=== PATIENT | male | born 1970 | race Caucasian/White ===

== ENCOUNTER 2016-11-16 15:32 | Emergency (ER) | payer SELFPAY ==
[2016-11-16] MEDS ORDERED: IPRATROPIUM/ALBUTEROL 3 ML DEYVIAL IH ONE (15:50)
--- NOTE | 2016-11-16 15:53 | UCPHY ---
H & P Patient Type: New Time Seen by Provider: 11/16/16 15:52 HPI/ROS: CHIEF COMPLAINT: Shortness of breath HISTORY OF PRESENT ILLNESS: The patient is a 46 year old male presenting with shortness of breath for the past 7 days. The patient reports difficulty catching his breath. He works in [employer] and noticed he's been wheezing more than usual while at work. He has an associated cough that is nonproductive. The patient has experienced similar bouts of dyspnea in the past, but his symptoms usually resolve after 3-4 days. He has used Primatene (over the counter) for these symptoms. Today, while walking up the stairs, the patient felt very lightheaded. The patient also mentions that he has been waking up due to shortness of breath. He denies lower extremity pain or swelling. He feels palpitations, but denies any associated chest pain. No recent fever. REVIEW OF SYSTEMS: A ten point review of systems was performed and is negative with the exception of the items mentioned in the HPI. Source: Patient - Medical/Surgical History Hx Asthma: No Hx Chronic Respiratory Disease: No Hx Diabetes: No Hx Cardiac Disease: No Hx Renal Disease: No Hx Cirrhosis: No Hx Alcoholism: No Hx HIV/AIDS: No Hx Splenectomy or Spleen Trauma: No Other PMH: Denies. - Family History Significant Family History: No pertinent family hx - Social History Smoking Status: Never smoked Drug Use: None Additional Social History: Works in [employer]. - Physical Exam Exam: General Appearance: Alert. Vital signs reviewed. BP 151/98. O2 95% RA. Eyes: Pupils equal and round, no conjunctival injection, no discharge. Anicteric. ENT, Mouth: Mucous membranes are moist, no oropharyngeal erythema or edema. Uvula is midline. Neck: No lymphadenopathy, supple. Trachea midline. Respiratory: Lungs with distant breath sounds, poor air exchange. No wheezing. Cardiovascular: Mildly tachycardic; no murmur, rub, or gallop. Gastrointestinal: Abdomen is soft and nontender, no masses or organomegaly, bowel sounds normal. Skin: Warm and dry, no rashes on exposed skin, normal color. Back: Nontender to palpation over the thoracolumbar spine. No CVAT. Extremities: No lower extremity edema, no calf tenderness or swelling. Neurological: Alert and oriented. Moving all four extremities easily and equally. Psychiatric: Normal affect. Constitutional: Initial Vital Signs Temperature (C) 36.4 C 11/16/16 15:54 Heart Rate 93 11/16/16 15:54 Respiratory Rate 20 11/16/16 15:54 Blood Pressure 151/98 H 11/16/16 15:54 O2 Sat (%) 95 11/16/16 15:54 O2 Delivery Mode Room Air Allergies/Adverse Reactions: No Known Allergies Allergy (Unverified 11/16/16 15:52) Home Medications: Medication Instructions Recorded Albuterol [Proventil Inhaler HFA 1 - 2 puffs IH Q4 #1 mdi 11/16/16 (*)] predniSONE 20 mg PO BID #8 tablet 11/16/16 Medical Decision Making ED Course/Re-evaluation: The patient received a DuoNeb breathing treatment. This helped his symptoms a little. I ordered an additional Albuterol Neb and 60mg Prednisone. I offered a chest x-ray, but the patient declines at this time. 4:45 p.m.: I reassessed the patient, repeat respiratory exam the patient has better air exchange, no wheezing. He tells me he is able to take a deep breath now. I will continue to monitor the patient. 5:15 p.m.: Vital signs repeated. Room air pulse ox is 94%. He was hypertensive on arrival and his blood pressure has improved to 129/84. He is not tachypneic or tachycardic. He continues to feel better. No signs of infection such as fever. No ronchi or rales and I do not suspect pneumonia. Pneumothorax unlikely. He understands that a CXR, which he declines , would help to rule out these possibilities. He is comfortable returning home. I am prescribing albuterol MDI and prednisone. He is referred to PCP. Danger signs reviewed with him. Differential Diagnosis: Shortness of breath including but not limited to pulmonary infectious process, bronchitis, COPD, asthma, pulmonary embolus and congestive heart failure. - Data Points Medications Given: Discontinued Medications Albuterol (Proventil Neb) 3 ml IH EDNOW ONE Stop: 11/16/16 16:06 Last Admin: 11/16/16 16:17 Dose: 3 ml Albuterol/Ipratropium (Duoneb) 3 ml IH EDNOW ONE Stop: 11/16/16 15:51 Last Admin: 11/16/16 15:45 Dose: 3 ml Prednisone (Prednisone) 60 mg PO EDNOW ONE Stop: 11/16/16 16:06 Last Admin: 11/16/16 16:18 Dose: 60 mg Departure - Departure Disposition: Home, Routine, Self-Care Clinical Impression: Wheezy bronchitis Condition: Good Instructions: Acute Bronchitis (ED) Additional Instructions: You have been referred to a primary care physician. Please call Dr. Enriquez to arrange a followup appointment. Use Albuterol inhaler as directed for shortness of breath, cough, or wheezing. Take 4 day course of Prednisone as directed. Referrals: Christen Enriquez MD [Medical Doctor] - As per Instructions Prescriptions: Albuterol [Proventil Inhaler HFA (*)] 1 - 2 puffs IH Q4 #1 mdi predniSONE 20 mg PO BID #8 tablet - PQRS PQRS Measurement: Does not apply. Report Scribed for: Lauren Olivares Report Scribed by: Anabell Lopez Date of Report: 11/16/16 Time of Report: 16:05 Physician Review and Approval Statement: 11/16/16 15:52 Portions of this note were transcribed by the director medical economics. I, Dr. Lauren Olivares, personally performed the history, physical exam, and medical decision- making; and confirmed the accuracy of the information in the transcribed note.
[2016-11-16] MEDS ORDERED: ALBUTEROL 3 ML DEYVIAL IH ONE (16:05)
[2016-11-16] MEDS ORDERED: predniSONE 20 MG TAB PO ONE (16:05)
[2016-11-16 17:21] VITALS: TEMP 97.7
[2016-11-16 18:00] VITALS: BP 128/86; PULSE 86; RESP 16; O2SAT 95
== END 2016-11-16 17:58 | disposition home or self-care (01) ==
LOC: CED 15:32
DX: R06.2 Wheezing (principal); J40 Bronchitis, not specified as acute or chronic
CPT/HCPCS: G0463-PO

== ENCOUNTER 2016-12-07 10:39 | Emergency (ER) | payer SELFPAY ==
[2016-12-07] MEDS ORDERED: IPRATROPIUM/ALBUTEROL 3 ML DEYVIAL IH ONE (11:46)
--- NOTE | 2016-12-07 11:49 | UCPHY ---
H & P Patient Type: Established Chief Complaint Nursing Narrative: C/o SOB intermittently x 30 days. Seen at [facility] [place] on [place]16 and got better with steriods prescribed but felt worse over past week. Time Seen by Provider: 12/07/16 11:18 HPI/ROS: 46-year-old male seen here 3 weeks ago for bronchitis re-presents today complaining of shortness of breath. He denies fevers or chills he states he has had some cough but his primary symptom is that he is unable to take a deep breath. He denies leg swelling calf pain leg injury. Review of systems General no fever no chills no weakness HEENT no eye pain no eye discharge. No eye redness, no sore throat Respiratory positive cough positive shortness of breath Cardiac no chest pain, no peripheral edema GI no abdominal pain, no diarrhea, no constipation, no nausea, no vomiting no flank pain, no hematuria, no dysuria Musculoskeletal no myalgias, no joint pain Heme no easy bruising, no easy bleeding Endo no polyuria, no polydipsia Skin no rashes, no pruritus Neuro no syncope, no dizziness, no headaches Psych is no suicidal ideation, no homicidal ideation Source: Patient - Personal History Current Tetanus/Diphtheria Vaccine: Unsure Current Tetanus Diphtheria and Acellular Pertussis (TDAP): Unsure - Medical/Surgical History Hx Asthma: No Hx Chronic Respiratory Disease: No Hx Diabetes: No Hx Cardiac Disease: No Hx Renal Disease: No Hx Cirrhosis: No Hx Alcoholism: No Hx HIV/AIDS: No Hx Splenectomy or Spleen Trauma: No Other PMH: Denies. - Family History Significant Family History: No pertinent family hx - Social History Smoking Status: Never smoked Alcohol Use: Occasionally Drug Use: None - Physical Exam Exam: 46-year-old male alert and oriented in moderate distress secondary to difficulty taking a deep breath in HEENT atraumatic normocephalic, extraocular muscles intact, anicteric Oropharynx negative for erythema negative exudate, tolerating her own secretions Neck supple no meningismus Lungs diffuse wheeze Heart regular rate and rhythm without murmur rub or gallop Abdomen nondistended normoactive bowel sounds soft nontender Back no CVA tenderness, no step-offs, no spinal tenderness Extremities no cyanosis clubbing or edema No calf tenderness, negative Homans Neuro alert and oriented, no focal deficits Skin no rash Constitutional: Initial Vital Signs Temperature (C) 37.2 C 12/07/16 10:54 Heart Rate 113 H 12/07/16 10:54 Respiratory Rate 18 12/07/16 10:54 Blood Pressure 124/97 H 12/07/16 10:54 O2 Sat (%) 95 12/07/16 10:54 O2 Delivery Mode Room Air Allergies/Adverse Reactions: No Known Allergies Allergy (Verified 12/07/16 10:54) Home Medications: Medication Instructions Recorded Albuterol 12/07/16 Albuterol [Ventolin Hfa Inhaler] 2 puffs IH Q4 PRN #1 mdi 12/07/16 Fluticasone Hfa 220 Mcg [Flovent 1 puffs IH BID #1 mdi 12/07/16 220 MCG Hfa MDI (*)] methylPREDNISolone [Medrol Dose 1 each PO AD #1 ea 12/07/16 Shiv] Medical Decision Making - Diagnostics Imaging: Chest x-ray consistent with reactive airway disease hyperinflation no pneumonia no effusion ED Course/Re-evaluation: Patient seen and evaluated for cough, shortness of breath, wheezing Chest x-ray, significant for airway disease Physical exam diffuse wheeze Patient DuoNeb followed by an albuterol neb of 5 mg Patient given prednisone 60 mg Differential diagnosis considered Reactive airway disease/asthma, pneumonia, pulmonary embolus Impression Some reactive airway disease Plan Home with albuterol inhaler, Flovent inhaler, Medrol Dosepak Advised to follow up with a primary care physician as referred on his prior visit Advised to return as needed Recommended further workup in emergency department including laboratories and had offered patient fluids and magnesium he currently is pink out of pocket and was adamant that he wanted the bare minimum of workup. - Data Points Medications Given: Discontinued Medications Albuterol (Proventil Neb) 6 ml IH CONT ONE Stop: 12/07/16 13:45 Last Admin: 12/07/16 13:48 Dose: 6 ml Albuterol/Ipratropium (Duoneb) 3 ml IH EDNOW ONE Stop: 12/07/16 11:47 Last Admin: 12/07/16 11:49 Dose: 3 ml Sodium Chloride (Ns) 1,000 mls @ 0 mls/hr IV ONCE ONE PRN Reason: Wide Open Stop: 12/07/16 11:53 Last Admin: 12/07/16 12:32 Dose: Not Given Magnesium Sulfate/Dextrose (Magnesium Sulf 1 Gm (Premix)) 100 mls @ 100 mls/hr IV EDNOW ONE Stop: 12/07/16 12:52 Last Admin: 12/07/16 12:31 Dose: Not Given Lactated Ringer's (Lr) 1,000 mls @ 500 mls/hr IV EDNOW ONE Stop: 12/07/16 14:05 Last Admin: 12/07/16 12:31 Dose: Not Given Methylprednisolone Sodium Succinate (Solu-Medrol) 125 mg IVP EDNOW ONE Stop: 12/07/16 11:53 Last Admin: 12/07/16 12:31 Dose: Not Given Prednisone (Prednisone) 60 mg PO EDNOW ONE Stop: 12/07/16 12:23 Last Admin: 12/07/16 12:30 Dose: 60 mg Departure - Departure Disposition: Home, Routine, Self-Care Clinical Impression: Reactive airway disease with acute exacerbation Condition: Good Instructions: Reactive Airways Disease (ED) Referrals: NONE *PRIMARY CARE P,. [Primary Care Provider] - As per Instructions Prescriptions: Albuterol [Ventolin Hfa Inhaler] 2 puffs IH Q4 PRN #1 mdi PRN Reason: Cough, Moderate Fluticasone Hfa 220 Mcg [Flovent 220 MCG Hfa MDI (*)] 1 puffs IH BID #1 mdi methylPREDNISolone [Medrol Dose Shiv] 1 each PO AD #1 ea - PQRS PQRS Measurement: na
[2016-12-07] MEDS ORDERED: methylPREDNISolone SOD SUCC 125 MG/2 ML VIAL IVP ONE (11:52)
[2016-12-07] MEDS ORDERED: NS 1,000 ML IV ONE (11:52)
[2016-12-07] MEDS ORDERED: MAGNESIUM SULF 1 GM/DEXTROSE 100 ML IV ONE (11:53)
[2016-12-07] MEDS ORDERED: LR 1,000 ML IV ONE (12:06)
[2016-12-07] MEDS ORDERED: predniSONE 20 MG TAB PO ONE (12:22)
[2016-12-07 12:33] VITALS: RESP 16
[2016-12-07] MEDS ORDERED: ALBUTEROL 3 ML DEYVIAL IH ONE (13:44)
[2016-12-07 14:11] VITALS: PULSE 91; TEMP 98.8
[2016-12-07 14:52] VITALS: BP 121/88; O2SAT 95
== END 2016-12-07 14:52 | disposition home or self-care (01) ==
LOC: CED 10:39
DX: J45.901 Unspecified asthma with (acute) exacerbation (principal)
CPT/HCPCS: 71020-PO; 99215-PO; G0463-PO; J3475

== ENCOUNTER 2016-12-16 07:32 | Emergency (ER) | payer SELFPAY ==
[2016-12-16 07:46] VITALS: BP 124/67; PULSE 125; RESP 22; TEMP 98; O2SAT 95
[2016-12-16] MEDS ORDERED: ALBUTEROL 3 ML DEYVIAL IH ONE (07:57)
[2016-12-16] MEDS ORDERED: predniSONE 20 MG TAB PO ONE (07:57)
--- NOTE | 2016-12-16 08:01 | UCPHY ---
H & P Time Seen by Provider: 12/16/16 07:38 Patient Type: Established HPI/ROS: CHIEF COMPLAINT: Shortness of breath HPI: The patient is a 46-year-old male with no known significant medical history. This is his 3rd visit to the ER within the last month, all for shortness of breath. The patient describes feeling extremely short of breath especially with exertion. He feels that he has been unable to sleep for the last few nights secondary to feelings of suffocation. The patient states that he was treated with prednisone and albuterol on previous visits which improved his symptoms for approximately 1 week but then he gets worse. He denies fever or cough. He denies hemoptysis. He denies chest pain. The patient has declined workup at previous visits secondary to financial concerns. REVIEW OF SYSTEMS: Aside from elements discussed in the HPI, a comprehensive 10-point review of systems was reviewed and is negative. PMH: No known heart disease. History of high blood pressure. SOCIAL HISTORY: Works as a [employer]. Denies alcohol or drug abuse. FAMILY HISTORY: Reviewed, noncontributory PHYSICAL EXAM: General:Patient is alert, in no acute distress. He appears very anxious and is sitting bolt upright in bed. ENT:Eyes are normal to inspection. ENT inspection normal. Neck: Normal inspection. Full range of motion. Respiratory:No respiratory distress. The patient is tachypneic but able to speak full sentences in between breaths. Air movement is diffusely diminished with mild expiratory wheeze noted. Cardiovascular: Regular rate and rhythm. Strong peripheral pulses. Normal cap refill. Abdomen:The abdomen is nontender to palpation. There are no peritoneal signs. There are normal bowel sounds. Back: Normal to inspection. No tenderness to palpation. Skin: Normal color. No rash. Warm and dry. Extremities: Normal appearance. Full range of motion. Neuro: Oriented x3. Normal motor function. Normal sensory function. Smoking Status: Never smoked Constitutional: Initial Vital Signs Temperature (C) 36.6 C 12/16/16 07:44 Heart Rate 125 H 12/16/16 07:44 Respiratory Rate 22 H 12/16/16 07:44 Blood Pressure 124/67 H 12/16/16 07:44 O2 Sat (%) 95 12/16/16 07:44 O2 Delivery Mode Room Air Allergies/Adverse Reactions: No Known Allergies Allergy (Verified 12/07/16 10:54) Home Medications: Medication Instructions Recorded Albuterol 12/07/16 Albuterol [Ventolin Hfa Inhaler] 2 puffs IH Q4 PRN #1 mdi 12/07/16 Fluticasone Hfa 220 Mcg [Flovent 1 puffs IH BID #1 mdi 12/07/16 220 MCG Hfa MDI (*)] methylPREDNISolone [Medrol Dose 1 each PO AD #1 ea 12/07/16 Shiv] LORazepam [Ativan (*)] 1 mg PO Q8H PRN #10 tab 12/16/16 methylPREDNISolone [Medrol Dose 1 each PO AD #1 ea 12/16/16 Shiv] MDM/Departure - MDM Medications Given: Discontinued Medications Albuterol (Proventil Neb) 3 ml IH EDNOW ONE Stop: 12/16/16 07:58 Last Admin: 12/16/16 08:38 Dose: 3 ml Lorazepam (Ativan) 1 mg PO EDNOW ONE Stop: 12/16/16 08:03 Last Admin: 12/16/16 08:39 Dose: 1 mg Prednisone (Prednisone) 60 mg PO EDNOW ONE Stop: 12/16/16 07:58 Last Admin: 12/16/16 08:39 Dose: 60 mg ED Course/Re-evaluation: I had extensive discussion with this patient regarding the fact that this is his 3rd visit for dyspnea. I strongly recommended we perform blood work, an EKG and possibly even CT imaging to exclude such life-threatening etiologies as acute coronary syndrome, pulmonary embolus, structural heart disease or CHF. The patient continues to adamantly refuse any testing. His plan is to follow up with a previously established primary care physician appointment in approximately 4 days. I explained the patient that given his symptoms as well as abnormal vital signs, the primary care physician may choose to send him directly to the ER for further testing that we should perform these tests now. Continues to refuse. The patient does appear extremely anxious and despite his dyspnea and tachypnea he is maintaining an oxygen saturation of approximately 92%. It is somewhat possible that symptoms may be related to anxiety and I have encouraged him to try a small dose of Ativan. I feel that this patient is making a poor decision by refusing further testing today, but he clearly has decisional capacity, and is aware or risks of his decision. - Depart Disposition: Home, Routine, Self-Care Clinical Impression: Dyspnea Condition: Good Instructions: Dyspnea (ED) Additional Instructions: Follow-up with your doctor as scheduled within one week. Return for fever, worsening shortness of breath, chest pain or other concerns. Prescriptions: LORazepam [Ativan (*)] 1 mg PO Q8H PRN #10 tab PRN Reason: Anxiety methylPREDNISolone [Medrol Dose Shiv] 1 each PO AD #1 ea Referrals: NONE *PRIMARY CARE P,. [Primary Care Provider] - As per Instructions - PQRS PQRS Measurement: 134: Depression screening and followup, PRIME MD-PHQ2 (12 years and older) Over the last 2 weeks, how often have you been bothered by any of the following problems? 1. Feeling down, depressed, or hopeless? 2. Little interest or pleasure in doing things? Patient answered no to both 1 and 2 130: Documentation of medications. Reviewed all patient medications, doses, route and frequency. 226: Do you smoke? No. 51: 18 years old and older with diagnosis of COPD, spirometry performance. Spirometry not performed; equipment not available. Patient has no history of COPD 52: 18 years old and older with COPD and symptoms of COPD or FEV1<60% predicted prescribed a B Agonist. Spirometry not performed; equipment not available.
[2016-12-16] MEDS ORDERED: LORazepam 1 MG TAB PO ONE (08:02)
== END 2016-12-16 08:59 | disposition home or self-care (01) ==
LOC: CED 07:32
DX: R06.02 Shortness of breath (principal)
CPT/HCPCS: 99214-PO; G0463-PO